=== PATIENT | female | born 1995 | race African-American/Black ===

== ENCOUNTER 2020-08-17 10:05 | Inpatient (IN) | payer MEDICAID ==
[~2020-08-17] VITALS: Ht 152.4 cm; Wt 61.2 kg
[2020-08-17] MEDS ORDERED: MISOPROSTOL 100MCG TABLET VG SCH (10:15)
[2020-08-17] MEDS ORDERED: MINERAL OIL 30ML BOTTLE PO NR (10:15)
[2020-08-17] MEDS ORDERED: METHYLERGONOVINE MALEATE 0.2 MG/ML IM PRN (10:15)
[2020-08-17] MEDS ORDERED: BUTORPHANOL TARTRATE 2 MG/ML VIAL IV PRN (10:15)
[2020-08-17] MEDS ORDERED: LIDOCAINE HCL 1% 20ML VIAL (Pyxis) INJ INFIL SCH (10:15)
[2020-08-17] MEDS ORDERED: CARBOPROST TROMETHAMINE 250 MCG/ML AMPUL IM PRN (10:15)
[2020-08-17] MEDS ORDERED: NALOXONE HCL 0.4 MG/ML 1ML VIAL IM PRN (10:15)
[2020-08-17 11:22] LABS: BASOPHILS % 0.3 % (0.0-2.0); HEMATOCRIT. 23.2 % (36.0-48.0); HEMOGLOBIN. 7.6 g/dL (12.0-16.0); LYMPHOCYTES % 17.2 % (20.0-50.0); MEAN CORPUSCULAR HEMOGLOBIN 24.2 pg (28.0-32.0); MEAN PLATELET VOLUME 7.2 fl (7.4-10.4); MONOCYTES % 9.5 % (2.0-8.0); PLATELET 249 x1000/uL (130-400); RED BLOOD CELL COUNT 3.13 mill/uL (4.2-5.4); RED CELL DISTRIBUTION WIDTH 19.3 % (11.6-14.6)
[2020-08-17 11:23] LABS: CLARITY URINE CLOUDY (CLEAR); COLOR URINE YELLOW (YELLOW); KETONES URINE NEGATIVE (NEGATIVE); LEUKOCYTE ESTERASE URINE NEGATIVE (NEGATIVE); NITRITE URINE NEGATIVE (NEGATIVE); OCCULT BLOOD URINE NEGATIVE (NEGATIVE); PH URINE 6.5 (4.5-8.0); PROTEIN URINE NEGATIVE (NEGATIVE); SPECIFIC GRAVITY URINE 1.022 (1.005-1.030)
[2020-08-17 11:32] LABS: PARTIAL THROMBOPLASTIN TIME 23.7 sec (23.4-31.0); PROTHROMBIN TIME 10.3 sec (9.6-11.0)
[2020-08-17] MEDS: LACTATED RINGERS 1,000 ML IV SCH ×2 (11:41→19:12)
[2020-08-17] MEDS: DEXT 5%/LR + PITOCIN 20UNITS/L 1,000 ML IV SCH (11:41)
[2020-08-17] MEDS ORDERED: ROPIVACAINE HCL/PF EPIDURAL 200 ML EPI SCH (12:00)
[2020-08-17 12:30] LABS: *BARBITURATES SCREEN URINE NEGATIVE (NEGATIVE); *BENZODIAZEPINES SCREEN URINE NEGATIVE (NEGATIVE); *COCAINE SCREEN URINE NEGATIVE (NEGATIVE); METHADONE URINE SCREEN NEGATIVE (NEGATIVE); OPIATES URINE SCREEN NEGATIVE (NEGATIVE); PHENCYCLIDINE URINE SCREEN NEGATIVE (NEGATIVE)
[2020-08-17 12:31] LABS: *AMPHETAMINES SCREEN URINE NEGATIVE (NEGATIVE); CANNABINOID URINE SCREEN NEGATIVE (NEGATIVE)
[2020-08-18] MEDS: DEXT 5%/LR + PITOCIN 20UNITS/L 1,000 ML IV SCH ×2 (01:32→21:19)
[2020-08-18] MEDS: LACTATED RINGERS 1,000 ML IV SCH (15:23)
[2020-08-18] MEDS ORDERED: LIDOCAINE HCL 1% 20ML VIAL (Pyxis) INJ INFIL SCH (18:30)
[2020-08-18] MEDS ORDERED: CARBOPROST TROMETHAMINE 250 MCG/ML AMPUL IM PRN (18:30)
[2020-08-18] MEDS ORDERED: NALOXONE HCL 0.4 MG/ML 1ML VIAL IM PRN (18:30)
[2020-08-18] MEDS ORDERED: METHYLERGONOVINE MALEATE 0.2 MG/ML IM PRN (18:30)
[2020-08-18] MEDS ORDERED: MINERAL OIL 30ML BOTTLE PO ONE (18:30)
[2020-08-18] MEDS ORDERED: BUTORPHANOL TARTRATE 2 MG/ML VIAL IV PRN (18:30)
[2020-08-18] MEDS ORDERED: MISOPROSTOL 100MCG TABLET VG SCH (18:30)
[2020-08-18 23:15] VITALS: BP 102/51
[2020-08-18] MEDS ORDERED: DEXT 5%/LR + PITOCIN 20UNITS/L 1,000 ML IV SCH (23:15)
[2020-08-18] MEDS ORDERED: IBUPROFEN 400MG TABLET PO PRN (23:15)
[2020-08-18] MEDS ORDERED: RHO(D) IMMUNE GLOBULIN 300 MCG/SYR IM PRN (23:15)
[2020-08-18] MEDS ORDERED: LANOLIN OINT 7GM TUBE TOP PRN (23:15)
[2020-08-18] MEDS ORDERED: BISACODYL 10MG SUPP PR PRN (23:15)
[2020-08-18] MEDS ORDERED: HEMORRHOIDAL SUPP PR PRN (23:15)
[2020-08-18] MEDS ORDERED: BENZOCAINE/LANOLIN/ALOE VERA SPRAY TOP PRN (23:15)
[2020-08-18] MEDS ORDERED: GLYCERIN/WITCH HAZEL LEAF MEDICATED PAD TOP PRN (23:15)
[2020-08-18] MEDS ORDERED: DIPHENHYDRAMINE 25MG CAPSULE PO PRN (23:15)
[2020-08-18] MEDS ORDERED: IBUPROFEN 800MG TABLET PO PRN (23:15)
[2020-08-18] MEDS ORDERED: ACETAMINOPHEN WITH CODEINE 300/30MG TABLET PO PRN (23:15)
[2020-08-19 04:00] VITALS: BP 100/60
[2020-08-19 06:16] LABS: BASOPHILS % 0.3 % (0.0-2.0); EOSINOPHILS % 0.4 % (0.0-5.0); HEMATOCRIT. 21.9 % (36.0-48.0); LYMPHOCYTES % 13.4 % (20.0-50.0); MEAN CORPUSCULAR VOLUME 73.2 fL (81.0-99.0); MONOCYTES % 8.3 % (2.0-8.0); NEUTROPHILS % 77.6 % (40.0-76.0); PLATELET 191 x1000/uL (130-400); RED CELL DISTRIBUTION WIDTH 19.5 % (11.6-14.6)
[2020-08-19 06:54] LABS: HEMOGLOBIN. 6.9 g/dL (12.0-16.0)
[2020-08-19 07:30] VITALS: BP 90/58
[2020-08-19] MEDS ORDERED: PRENATAL VIT/FE FUMARATE/FA TABLET PO SCH (09:00)
[2020-08-19] MEDS: SIMETHICONE 80MG TABLET CHEW PO SCH ×3 (09:14→21:56)
[2020-08-19] MEDS: MAGNESIUM/ALUMINUM HYDROXIDE/SIMETHICONE 30ML UDC PO SCH ×3 (09:14→21:56)
[2020-08-19] MEDS: FERROUS SULFATE 325MG TABLET PO SCH ×2 (09:14→15:36)
[2020-08-19 16:00] VITALS: BP 90/54
[2020-08-19 20:00] VITALS: BP 102/63
[2020-08-19] MEDS ORDERED: DOCUSATE SODIUM 100MG CAPSULE PO SCH (21:00)
[2020-08-20 04:00] VITALS: BP 95/52
[2020-08-20 07:30] VITALS: BP 90/62
[2020-08-20] MEDS: MAGNESIUM/ALUMINUM HYDROXIDE/SIMETHICONE 30ML UDC PO SCH (08:11)
[2020-08-20] MEDS: SIMETHICONE 80MG TABLET CHEW PO SCH (08:11)
[2020-08-20] MEDS: FERROUS SULFATE 325MG TABLET PO SCH (08:11)
[2020-08-20 15:31] LABS: HBSAG SCREEN Negative (Negative)
== END 2020-08-20 11:00 | disposition home or self-care (01) | DRG 560 ==
LOC: 8 EST LDRP 10:05 → OBSVTOIN 10:05 → 8 EST LDRP 11:05 → 8EST 08-18 23:10
PROVIDERS: ADMIT Obstetrics & Gynecology; ATTEND Obstetrics & Gynecology
PROC: 10E0XZZ Delivery of Products of Conception, External Approach (ICD-10-PCS; principal; 2020-08-18)
PROC: 00HU33Z Insertion of Infusion Device into Spinal Canal, Percutaneous Approach (ICD-10-PCS; 2020-08-18)
PROC: 3E0R3BZ Introduction of Anesthetic Agent into Spinal Canal, Percutaneous Approach (ICD-10-PCS; 2020-08-18)
PROC: 30233S1 Transfusion of Nonautologous Globulin into Peripheral Vein, Percutaneous Approach (ICD-10-PCS; 2020-08-18)
DX: O36.5930 Maternal care for other known or suspected poor fetal growth, third trimester, not applicable or unspecified (principal); D64.9 Anemia, unspecified; O99.02 Anemia complicating childbirth; Z37.0 Single live birth; Z3A.39 39 weeks gestation of pregnancy
CPT/HCPCS: 36415; 76805; 76818; 80305; 81003; 85025; 86592; 86703; 86762; 86850; 86870; 86886; 86900; 87340; 90384; J0595; J2590

== ENCOUNTER 2020-09-27 16:14 | Emergency (ER) | payer MEDICAID ==
[~2020-09-27] VITALS: Ht 152.4 cm; Wt 55.0 kg
[2020-09-27 16:49] VITALS: BP 122/78
== END 2020-09-27 19:48 | disposition home or self-care (01) ==
LOC: ER 16:14
DX: R07.81 Pleurodynia (principal); R51.9 Headache, unspecified
CPT/HCPCS: 99281

== ENCOUNTER 2021-09-22 13:49 | Emergency (ER) | payer MEDICAID ==
[~2021-09-22] VITALS: Ht 152.4 cm; Wt 50.0 kg
[2021-09-22 13:55] VITALS: BP 85/59
== END 2021-09-22 18:28 | disposition left against medical advice (07) ==
LOC: ER 13:49
DX: Z53.21 Procedure and treatment not carried out due to patient leaving prior to being seen by health care provider (principal)

== ENCOUNTER 2021-09-27 09:18 | Emergency (ER) | payer MEDICAID ==
[~2021-09-27] VITALS: Ht 172.7 cm; Wt 48.0 kg
[2021-09-27 09:27] VITALS: BP 97/65
[2021-09-27] MEDS ORDERED: KETOROLAC 15MG/ML VIAL IM ONE (12:00)
== END 2021-09-27 12:49 | disposition home or self-care (01) ==
LOC: ER 10:11
DX: M79.671 Pain in right foot (principal); W22.8XXA Striking against or struck by other objects, initial encounter; Y93.89 Activity, other specified; Y92.018 Other place in single-family (private) house as the place of occurrence of the external cause
CPT/HCPCS: 73610; 73630; 81025; 96372; 99284; J1885

== ENCOUNTER 2021-12-25 18:10 | Emergency (ER) | payer MEDICAID ==
[~2021-12-25] VITALS: Ht 152.4 cm; Wt 44.0 kg
[2021-12-25] MEDS ORDERED: ACETAMINOPHEN 325MG TABLET PO STA (18:57)
[2021-12-25] MEDS ORDERED: TOPUD PO (19:50)
[2021-12-25 20:40] VITALS: BP 125/72
== END 2021-12-25 20:57 | disposition home or self-care (01) ==
LOC: ER 18:10
DX: B34.9 Viral infection, unspecified (principal); Z20.822 Contact with and (suspected) exposure to COVID-19
CPT/HCPCS: 71045; 87420; 87804; 99284